=== PATIENT | female | born 1950 | race Caucasian/White ===

== ENCOUNTER 2024-08-14 11:12 | Outpatient (CLI) | payer MEDICARE, SELFPAY ==
[2024-08-14 11:35] LABS: Basophils Absolute Auto 0.04 K/mm3 (0.00-0.10); Basophils Percent Auto 0.3 % (0.0-1.0); Eosinophils Absolute Auto 0.74 K/mm3 (0.02-0.50); Eosinophils Percent Auto 5.5 % (1.0-6.0); Hematocrit 34.4 % (35.0-42.0); Hemoglobin 10.1 g/dL (11.7-13.8); Immature Granulocyte Absolute 0.22 K/mm3 (0.00-0.00); Immature Granulocyte Percent A 1.6 % (0.0-0.0); Lymphocytes Absolute Auto 0.95 K/mm3 (1.10-4.50); Lymphocytes Percent Auto 7.1 % (18.0-42.0); Mean Corpuscular HGB Conc 29.4 g/dL (32-36); Mean Corpuscular Hemoglobin 27.9 pg (27.0-31.0); Mean Platelet Volume 10.5 fl (9.2-11.8); Monocytes Absolute Auto 0.54 K/mm3 (0.10-0.90); Neutrophils Percent Auto 81.5 % (50.0-70.0); Platelet Count Result 392 K/mm3 (150-420); Red Blood Count 3.62 M/mm3 (4.20-5.40); Red Cell Distribution Width 14.8 % (11.6-14.4); White Blood Count 13.4 K/mm3 (4.8-10.8)
--- OUTSIDE RECORDS SUMMARY | 2024-08-14 11:45 | XMS_ITS | Continuity of Care Document ---
Author Organization [facility] Address [address] [facility] [address] [place] [address] Phone Care Team Providers Care Oncology Coordinator Name Role Phone Krysta LANG FACS, Truman May le Allergies, Adverse Reactions, Alerts Substance Reaction Status Criticality CIPROFLOXACIN HCL Active No Informa tion ciprofloxacin Active No Information lisinopril Active No Information Ruqfxwa-INN-XlS Reductase Inhibitors Acti ve No Information Medications Medication Instructions Dosage Effective Dates (start - stop) Status Comments colchicine 0.6 mg capsule take 1 capsule by oral route every day 0.6 MG - Active Humulin 70/30 U-100 Insulin 100 unit/mL subcutaneous suspension inject by subcutaneous route as per insulin protocol 0.00 - Active Trulicity 0.75 mg/0.5 mL subcutaneous pen injector inject (0.75MG) by subcutaneous route every week 0.75 MG - Active lorazepam 2 mg tablet take 1 tablet by o ral route 3 times every day as needed 2 MG - Active ropinirole 1 mg tablet take 1 tablet by oral route 3 times every day 1 MG - Active venlafaxine ER 150 mg tablet,extended release 24 hr take 1 tablet by oral route every day in the morning at the same time each day with food 150 MG - Active furosemide 20 mg tablet take 1 tablet by oral route every day 20 MG - Active Procedures Procedure Date Corneal Topography No Charge Optomap Fundus Photos 024 No Charge Refraction Eye Exam, New Patient No Charge Optomap Fundus Photos 019 Corneal Topography Refraction Eye Exam, New Patient Advance Directives Directive Yes / No Effective Date File Name Other Directive No N/A N/A WARNING:The information contained in this section is historical and is provided for information only and does not constitute a legal document or any assurance that the information is still accurate. Please verify the information with the carrasco of the legal document before using it for clinical purposes. Encounters Encounter Description Practice Location Reason(s) For Visit Diagnoses Date Provider Providers Copied on Encounter [employer] [facility] [employer] [facility], [facility] [address], [place], [place], [address], tel:[phone] SEC [place] cornea eval (chief complaint) Presence of intraocular lensType 2 diabetes mellitus without complicationsA nterior basement membrane dystrophy (ABMD) of both eyesDrusen of right macula 4 [place] Truman. [facility] [address] [facility], [address], [place], [place], [address], . tel:[phone] Referring Provider: Nancy Bonilla OD, [address] [place], [place], [facility]. tel:[phone] [employer] [facility] [employer] [facility], [facility] [address], [place], [place], [address], tel:[phone] SEC [place] SUSSY Professional No Information 4 Rosendo OD Thuy. [facility] [address], [address], [place], [place], [address], . tel:[phone] [facility] [employer] [facility], [facility] [address], [place], [place], [address], tel:[phone] SEC [place] SUSSY Professional Complete Exam (chief complaint) ABMD (anterior basement membrane dystrophy)Pres ence of intraocular lensType 2 diabetes mellitus without complications 0-201 9 Krysta Truman. [address], [address], [place], [place], [address], . tel:[phone] Referring Provider: Nacny Bonilla OD, [address] [place], [address]. tel:[phone] Family History Family Member Type Diagnosis Age At Onset Father Problem (finding) glaucoma Payers Payer name Insurance type Covered green party ID Heidy lopez(s) [facility] Mdcr Adv CI [id number] Social History Type Description Quantity Date Captured Comments Alcohol Use Details No Caffeine Use Details No Tobacco Use Status Current non-smoker Smoking Status Never smoker Non-Smoking Tobacco Use Details : No Details Available : No Details Available Sex Female Chief Complaint And Reason For Visit From encounter dated '11/10/2023 13:00'. cornea eval (chief complaint). Description: The 73 year old patient presents for evaluation of cornea eval in the right eye and left eye. Patient was referring by OD to have ABMD re-evaluated. Patient states the vision in both eyes has gotten progressively worse over the last year, can no longer see print on the TV. Pt fell about 6 weeks ago and hit a flower pot temporal to the left eye, had a bump and pain in the corner of that eye. Pt is using iV[employer]ia PRN OU. Pt is IDDM II, and is followed by PCP and last A1C is unknown. Reason For Referral Reason For Referral No Information History Of Present Illness Encounter Date Complaint History Of Prese nt Illness cornea eval The 73 year old patient presents for evaluation of cornea eval in the right eye and left eye. Patient was referring by OD to have ABMD re-evaluated. Patient states the vision in both eyes has gotten progressively worse over the last year, can no longer see print on the TV. Pt fell about 6 weeks ago and hit a flower pot temporal to the left eye, had a bump and pain in the corner of that eye. Pt is using iV[employer]ia PRN OU. Pt is IDDM II, and is followed by PCP and last A1C is unknown. Complete Exam The 69 year old female presents for evaluation of Complete Exam in the right eye and left eye. Hx PCIOL OU s/p Yag PC OU, ABMD OU. Pt referred to us by Dr. Bonilla for ABMD OU. DM2, last A1c 8.3, last tested 2 weeks ago, BS 106 as of this morning, followed by Dr. Flynn. Pt reports trouble with night driving. Pt denies pain and discomfort, but dryness OU. Pt reports light sensitivity OU x 3-4 years. PT uses OTC ATs prn OU. Had amniotic membrane placed OD x [address] 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
[2024-08-14 11:48] LABS: Hemoglobin A1C 7.8 % (<5.7)
[2024-08-14 12:41] LABS: Alanine Aminotransferase 68 U/L (6-35); Albumin Level 3.1 g/dL (3.5-5.1); Alkaline Phosphatase 132 U/L (38-126); Anion Gap 9 mmol/L (4-12); Aspartate Amino Transferase 69 U/L (14-36); Bilirubin,Total 0.8 mg/dL (0.2-1.3); Blood Urea Nitrogen 38 mg/dL (7-17); Calcium 8.1 mg/dL (8.4-10.2); Carbon Dioxide 22 mmol/L (22-30); Chloride 101 mmol/L (98-107); Estimated Glomerular Filt Rate 14; Glucose 191 mg/dL (65-110); Osmolality Calculated 288 mOsm/kg (285-295); Potassium 5.7 mmol/L (3.4-5.0); Sodium 132 mmol/L (137-145); Total Protein 6.1 g/dL (6.3-8.2)
== END 2024-08-14 11:13 | disposition home or self-care (01) ==
PROVIDERS: PCP Family Medicine; Visit Provider Family Medicine
DX: N18.30 Chronic kidney disease, stage 3 unspecified (principal); E11.22 Type 2 diabetes mellitus with diabetic chronic kidney disease; E03.9 Hypothyroidism, unspecified; D64.9 Anemia, unspecified
CPT/HCPCS: 36415; 80053; 83036; 84443; 85025

== ENCOUNTER 2024-08-14 21:55 | Emergency (ER) | payer MEDICARE, SELFPAY ==
[2024-08-14] VITALS (11 sets, daily range): BP systolic 67–114; BP diastolic 26–99; PULSE 67–72; RESP 17–29; TEMP 36.9; O2SAT 80–99
--- NOTE | ~2024-08-14 | CT_ITS ---
History: Elevated creatinine and lethargy PROCEDURE: CT head without contrast. COMPARISON: None TECHNIQUE: Axial imaging of the head performed from the skull base to the vertex without IV contrast. Sagittal a nd coronal reformations obtained. Examination is limited by patient motion artifact DLP: 681 mGy-cm FINDINGS: The ventricles are normal in size, shape and position. There is no mass, mass effect or midline shift. Calcifications within the basal ganglia bilaterally. Bifrontal atrophy. There is no abnormal extra-axial fluid collection or intracranial hemorrhage. Visualized paranasal sinuses are clear. The mastoid air cells are well aerated. No acute displaced fractures within the overlying cranium. Impression: No acute intracranial hemorrhage or suspicious mass effect. Reviewed, dictated and finalized at location A. Impression: No acute intracranial hemorrhage or suspicious mass effect.
--- NOTE | ~2024-08-14 | XR_ITS ---
CHEST RADIOGRAPH CLINICAL HISTORY: volume overload . COMPARISON: None available TECHNIQUE: Single portable view of the chest. FINDINGS The cardiomediastinal silhouette is enlarged. Increased interstitial markings are identified bilaterally, findings suggesting mild pulmonary vascul ar congestion. The lungs are otherwise clear IMPRESSION: Mild pulmonary vascular congestion and cardiomegaly, without focal infiltrate or effusion. Reviewed, dictated and finalized at location A. IMPRESSION: Mild pulmonary vascular congestion and cardiomegaly, without focal infiltrate o r effusion.
--- NOTE | ~2024-08-14 | XR_ITS ---
Portable chest x-ray Comparison: 08/14/2024 Clinical History: Line placement Findings: Right IJ line in place, tip possibly just the right atrium. Lungs are clear, without focal consolidation or pleural effusion. No pneumothorax. Cardiomediastinal silhouette is stable. Bones a nd soft tissues are unremarkable. Impression: Right IJ line in place, as above. Clear lungs. Stable cardiomegaly. Reviewed, dictated and finalized at location M. Impression: Right IJ line in place, as above. Clear lungs. Stable cardiomegaly.
--- OUTSIDE RECORDS SUMMARY | 2024-08-14 21:58 | XMS_ITS | Continuity of Care Document ---
Author Organization [facility] Address [address] [facility] [address] [place] [address] Phone Care Team Providers Care Manufacturing Engineer Chief Name Role Phone Krysta LANG FACS, Truman May le Allergies, Adverse Reactions, Alerts Substance Reaction Status Criticality CIPROFLOXACIN HCL Active No Informa tion ciprofloxacin Active No Information lisinopril Active No Information Thorbnz-UNI-CiB Reductase Inhibitors Acti ve No Information Medications [...] Diagnoses Date Provider Providers Copied on Encounter [employer] [facility], [facility] [address], [place], [place], [address], tel:[phone] SEC [place] cornea eval (chief complaint) Presence of intraocular lensType 2 diabetes mellitus without complicationsA nterior basement membrane dystrophy (ABMD) of both eyesDrusen of right macula 4 [place] Truman. [facility] [address] [facility], [address], [place], [place], [address], . tel:[phone] Referring Provider: Nancy Bonilla OD, [address] [place], [place], [facility]. tel:[phone] [employer], [facility] [address], [place], [place], [address], tel:[phone] SEC [place] SUSSY Professional No Information 4 Rosendo OD Thuy. [facility] [address], [address], [place], [place], [address], . tel:[phone] [employer] [facility], [facility] [address], [place], [place], [address], tel:[phone] SEC [place] SUSSY Professional Complete Exam (chief complaint) ABMD (anterior basement membrane dystrophy)Pres ence of intraocular lensType 2 diabetes mellitus without complications 0-201 9 Krysta Truman. [address], [address], [place], [place], [address], . tel:[phone] Referring Provider: Nancy Bonilla OD, [address] [place], [address]. tel:[phone] Family History Family Member Type Diagnosis Age At Onset Father Problem (finding) glaucoma Payers Payer name Insurance type Covered alliance party ID Heidy lopez(s) [facility] Mdcr Adv CI [id number] Social History Type Description Quantity Date Captured [...]
--- NOTE | 2024-08-14 22:01 | ED_ITS ---
HPI - General Adult General Chief complaint: Recheck/Abnormal Lab/Rx Stated complaint: abnormal labs Time Seen by Provider: 08/14/24 22:01 Source: patient and EMS Mode of arrival: ambulatory Limitations: no limitations History of Present Illness HPI narrative: 74-year-old female with a history of obesity, KOMAL, arthritis, sciatica hypothyroidism, dyslipidemia, diabetes mellitus, breast cancer status post lumpectomy and radiation many years ago, CHF, anemia, was recently admitted to [facility] for acute on chronic renal failure. After discharge the patient presented to her primary care physician who ordered blood work which revealed a BUN/creatinine of 38/3.17 with a potassium of 5.7. She is transferred from the halfway for abnormal labs. patient denies any chest pain or shortness of breath. No nausea, vomiting, abdominal pain or diarrhea. Patient has extensive flexural dermatitis involving her pannus and bilateral inguinal regions. Patient is drowsy but arousable. Patient is a current blood pressure of 98/76 with an oxygen saturation of 93% on room air. Related Data Allergies Allergy/AdvReac Type Severity Reaction Status Date / Time allopurinol Allergy Unknown Unknown Verified 08/14/24 22:34 atorvastatin Allergy Unknown Unknown Verified 08/14/24 22:34 ciprofloxacin Allergy Unknown Unknown Verified 08/14/24 22:34 lisinopril Allergy Unknown Unknown Verified 08/14/24 22:34 Penicillins Allergy Unknown Unknown Verified 08/14/24 22:34 pravastatin Allergy Unknown unknown Verified 08/14/24 22:34 sertraline Allergy Unknown Unknown Verified 08/14/24 22:34 Review of Systems 2 Review of Systems: All systems reviewed & are unremarkable except as noted in HPI and below Constitutional: Constitutional: Reports as per HPI and Reports no additional constitutional complaints Comments: Patient is drows Eyes: Eyes: Reports as per HPI and Reports no additional eye complaints ENT: Reports system reviewed and no additional complaints, except as documented and Reports as per HPI Cardiovascular: Cardiovascular: Reports as per HPI and Reports no additional cardiovascular complaints Respiratory: Respiratory: Reports as per HPI and Reports no additional respiratory complaints Gastrointestinal: Gastrointestinal: Reports as per HPI and Reports no additional gastrointestinal complaints Genitourinary: Genitourinary: Reports no additional female genitourinary complaints Musculoskeletal: Musculoskeletal: Reports no additional musculoskeletal complaints and Reports as per HPI Integumentary/Breasts: Skin/Breast: Reports system reviewed and no additional complaints, except as docu Comments: extensive erythematous rash below her pannus and bilateral inguinal region Neurologic: Reports system reviewed and no additional complaints, except as documented Comments: patient is drowsy. She is moving all her limbs Psychiatric: Psychiatric: Reports no additional psychiatric complaints and Reports as per HPI Endocrine: Endocrine: Reports no additional endocrine complaints and Reports as per HPI Hematologic/Lymphatic: Hematologic/Lymphatic: Reports no additional hematologic/lymphatic complaints and Reports as per HPI Allergic/Immunologic: Allergic/Immunologic: Reports no additional allergic/immunologic complaints and Reports as per HPI [facility] Past Medical History Medical History (Updated 08/15/24 @ 01:40 by Danial Brown MD) Breast cancer Flexural seborrheic dermatitis Hypertension CHF (congestive heart failure) CKD (chronic kidney disease) Dyslipidemia Hypothyroidism Hyperglycemia due to type 2 diabetes mellitus Social History Social History (Updated 08/14/24 @ 22:20 by Danial Brown MD) Social History: halfway resident Exam 2 Narrative: blood pressure is 98/76 with a pulse of 71. Afebrile oxygen saturation of 93% on room Const: General: ill appearing Nutritional Appearance: obese Limitations: altered mental status ( patient is drowsy but arouses) HENMT: Head: normal to inspection Ears: external ears normal F chen/Nose/Sinus: Normal external nose present Face and sinus: normal facial exam Mouth: Yes dry mucous membranes Throat: posterior oropharynx normal Eyes: Conjunctivae: conjunctivae normal Pupils: Equal, round and reactive pupils present EOM: EOMs intact bilaterally Direct Ophthalmoscopy: no photophobia Neck: Neck: normal visual inspection, no lymphadenopathy and no meningeal signs Chest: Chest palpation & inspection: normal inspection of the chest Resp: Effort & Inspection: normal respiratory effort Auscultation: clear to auscultation bilaterally Cardio: Rate: regular rate Rhythm: regular rhythm GI: GI Palp: Yes Soft to palpation Auscultation: normal bowel sounds O ther: parietal hernia no tenderness/ rigidity /rebound : General: Yes no CVA tenderness Back/Spine/Pelvis: Back: no CVA tenderness Skin: Other: edematous rash in the lower abdominal wall and bilateral Inguinal region and left breast Neuro: General: patient oriented x3, moves all extremities, no meningeal signs, no focal motor deficits and CN's II-XI intact bilaterally Speech: n ormal speech Other: patient is drowsy but Extrem: General: edema Psych: Mental Status: mental status grossly normal Course Course Emergency Course: altered mental status-- CT of the head did not show any acute findings low blood pressure--sepsis. patient has an elevated white cell count of 14.4 and a normal lactate. The patient has been cultured and start did on vanc and cefepime. hypoglycemia- patient is on long-acting insulin. The patient received 25 g of D50 and was started on D10 the blue at 50 cc an hour. acute on chronic failure/ Hyperkalemia-- patient appear to be dehydrated. Give a 500 mL of normal saline. The patient received Lokelma, IV bicarbonate and calcium gluconate for hyper kalemia hyperuricemia cardiomegaly-- rule out pericardial effusion Vital Signs Vital signs: Vital Signs Temperature 36.9 C 08/14/24 22:01 Pulse Rate 71 08/14/24 22:01 Respiratory Rate 17 08/14/24 22:01 Blood Pressure 68/44 L 08/14/24 22:01 Pulse Oximetry 93 08/14/24 22:01 Oxygen Delivery Room Air 08/14/24 22:01 Temperature 36.7 C 08/15/24 00:15 Pulse Rate 70 08/15/24 01:10 Respiratory Rate 25 H 08/15/24 00:15 Blood Pressure 90/53 L 08/15/24 01:10 Pulse Oximetry 97 08/15/24 00:15 Oxygen Delivery Room Air 08/15/24 00:15 Procedures Central Line Placement Right IJ: Central Line Date: 08/15/24 Central Line Time: 00:40 Discussed w/ the patient/family/POA,the placement of a central venous catheter, including its clinical necessity/indication & associated potential risks, benifits and alternatives.: Yes The patient/family/POA understand(s) and acknowledge(s) the need to proceed with central venous catheter insertion as an important element of the patient's clinical management.: Yes Performed Emergently - Given emergent patient condition, temporal constraints may have precluded informed consent.: Yes Time Out Performed: Yes Patient Placed on Monitor/Pulse Ox: Yes Max. Sterile Barrier Technique: Caps, large sterile sheet and hand hygiene Central Line Prep: 2% chlorhexidine scrub Local Anesthetic: lidocaine 1% Amount of anesthesia used (mL): 4 Central Line Lumen Inserted: triple Post Procedure: sutured in place and good blood return Post Procedure X-Ray: tip of catheter in good position ( the central line was pulled back by 3 cm.) Patient Tolerated Procedure: no complications Complications: none Medical Decision Making MDM Narrative Medical decision making narrative: hypotension acute on chronic renal failure with hyperkalemia altered mental status flexural dermatitis Differential Diagnosis Differential Diagnosis: septic shock, adrenal insufficiency, dehydration/hypovolemic shock Medical Records Medical records reviewed: Yes I reviewed the external patient's medical records. Vital Signs Vital Signs: Vital Signs Temperature 36.9 C 08/14/24 22:01 Pulse Rate 71 08/14/24 22:01 Respiratory Rate 17 08/14/24 22:01 Blood Pressure 68/44 L 08/14/24 22:01 Pulse Oximetry 93 08/14/24 22:01 Oxygen Delivery Room Air 08/14/24 22:01 Temperature 36.7 C 08/15/24 00:15 Pulse Rate 70 08/15/24 01:10 Respiratory Rate 25 H 08/15/24 00:15 Blood Pressure 90/53 L 08/15/24 01:10 Pulse Oximetry 97 08/15/24 00:15 Oxygen Delivery Room Air 08/15/24 00:15 Lab Data 08/14/24 22:55 08/14/24 22:55 Labs: Lab Results 08/14/24 08/14/24 08/15/24 Range/Units 22:55 23:26 00:03 WBC 14.4 H (4.8-10.8) K/mm3 RBC 3.46 L (4.20-5.40) M/mm3 Hgb 9.7 L (11.7-13.8) g/dL Hct 31.4 L (35.0-42.0) % MCV 90.8 (78.0-102.0) fL MCH 28.0 (27.0-31.0) pg MCHC 30.9 L (32-36) g/dL RDW 14.9 H (11.6-14.4) % Plt Count 420 (150-420) K/mm3 MPV 9.6 (9.2-11.8) fl Immature Gran % (Auto) 2.1 H (0.0-0.0) % Neut % (Auto) 76.6 H (50.0-70.0) % Lymph % (Auto) 12.4 L (18.0-42.0) % [place] % (Auto) 3.4 (2.0-11.0) % Eos % (Auto) 5.3 (1.0-6.0) % Baso % (Auto) 0.2 (0.0-1.0) % Lymph # (Auto) 1.78 (1.10-4.50) K/mm3 [place] # (Auto) 0.49 (0.10-0.90) K/mm3 Eos # (Auto) 0.77 H (0.02-0.50) K/mm3 Baso # (Auto) 0.03 (0.00-0.10) K/mm3 Abs Immat Gran (auto) 0.30 H (0.00-0.00) K/mm3 Absolute Neuts (auto) 11.03 H (1.70-7.20) K/mm3 Absolute Nucleated RBC 0.00 (0.00-0.00) K/mm3 Nucleated RBC % 0.0 (0-0.0) % Sodium 131 L (137-145) mmol/L Potassium 4.2 (3.4-5.0) mmol/L Chloride 100 (98-107) mmol/L Carbon Dioxide 24 (22-30) mmol/L Anion Gap 7 (4-12) mmol/L BUN 42 H (7-17) mg/dL Creatinine 4.32 H (0.7-1.0) mg/dL Estim Creat Clear Calc 12 ml/min Estimated GFR 10 L (59 - ) Glucose 51 L* (65-110) mg/dL POC Capillary Glucose 63 L 143 H (65-105) mg/dl Calculated Osmolality 279 L (285-295) mOsm/kg Lactic Acid 1.0 (0.4-2.0) mmol/L Uric Acid 7.6 H (2.5-7.5) mg/dL Calcium 8.0 L (8.4-10.2) mg/dL Magnesium 1.7 (1.6-2.3) mg/dL Total Bilirubin 0.6 (0.2-1.3) mg/dL AST 64 H (14-36) U/L ALT 68 H (6-35) U/L Alkaline Phosphatase 145 H (38-126) U/L Total Creatine Kinase 64 (30-135) U/L Troponin I < 0.012 (0.000-0.034) ng/mL NT-Pro-B Natriuret Pep 706 H (19.9-100) pg/mL Total Protein 6.2 L (6.3-8.2) g/dL Albumin 3.1 L (3.5-5.1) g/dL TSH 1.460 (0.465-4.680) uIU/mL Nasal MRSA (PCR) Detected A* (NOT DETECTE) Influenza A (RT-PCR) Negative (Negative) Influenza B (RT-PCR) Negative (Negative) RSV (RT-PCR) Negative (Negative) SARS-CoV-2 RNA (RT-PCR) Negative (Negative) ECG Data EKG #1: ECG completion date: 08/14/24 ECG completion time: 22:46 Interpretation: normal sinus rhythm. No ST elevation. Normal axis. 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 Critical Care Time Critical Care Time Critical Care Time: Yes Total Critical Care Time: 60 Discharge Plan Discharge Clinical Impression: Hypoglycemia Hypotension Qualifiers: Hypotension type: unspecified hypotension type Qualified Code(s): I95.9 - Hypotension, unspecified Acute on chronic kidney failure Qualifiers: Acute renal failure type: unspecified Chronic kidney disease stage: stage 4 (GFR 15-29) Qualified Code(s): N17.9 - Acute kidney failure, unspecified Patient Disposition: Still a Patient Condition: Stable Additional Instructions: transfer patient to [facility] in [facility]. Patient has been accepted by Dr. Hutton Patient Language: Bengali Follow-up/Referrals: Lavelle Manjarrez MD [Primary Care Provider] - Time of Disposition: 01:40
--- NOTE | 2024-08-14 22:23 | ECG_ITS ---
Test Date: 2024-08-14 22:46:46 Measurements Intervals [place] Rate: 73 P: 20 [place]: 169 QRS: -2 QRSD: 93 T: 5 QT: 401 QTc: 442 Interpretive Statements SINUS RHYTHM No previous ECG available for comparison Electronically Signed On 08-15-2024 14:00:27 CDT by Elan Dickey M.D.
--- OUTSIDE RECORDS SUMMARY | 2024-08-14 22:24 | XMS_ITS | Continuity of Care Document ---
Author Organization [facility] Address [address] [facility] [address] [place] [address] Phone Care Team Providers Care Ratoprinter Name Role Phone Krysta LANG FACS, Truman May le Allergies, Adverse Reactions, Alerts Substance Reaction Status Criticality CIPROFLOXACIN HCL Active No Informa tion ciprofloxacin Active No Information lisinopril Active No Information Ziehdfh-ZFT-DeU Reductase Inhibitors Acti ve No Information Medications [...] Diagnoses Date Provider Providers Copied on Encounter [facility], [facility] [address], [place], [place], [address], tel:[phone] SEC [place] cornea eval (chief complaint) Presence of intraocular lensType 2 diabetes mellitus without complicationsA nterior basement membrane dystrophy (ABMD) of both eyesDrusen of right macula 4 [place] Truman. [facility] [address] [facility], [address], [place], [place], [address], . tel:[phone] Referring Provider: Nancy Bonilla OD, [address] [place], [place], [facility]. tel:[phone] [facility], [facility] [address], [place], [place], [address], tel:[phone] SEC Chaz SUSSY Professional No Information 4 Rosendo OD Thuy. [facility] [address], [address], [place], [place], [address], . tel:[phone] [employer] [facility], [facility] [address], [place], [place], [address], tel:[phone] SEC [place] SUSSY Professional Complete Exam (chief complaint) ABMD (anterior basement membrane dystrophy)Pres ence of intraocular lensType 2 diabetes mellitus without complications 0-201 9 Krysta Truman. [address], [address], [place], [place], [address], . tel:[phone] Referring Provider: Nancy Bonilla OD, [address] [place], [address]. tel:[phone] Family History Family Member Type Diagnosis Age At Onset Father Problem (finding) glaucoma Payers Payer name Insurance type Covered constitution party ID Heidy lopez(s) [facility] Mdcr Adv CI [id number] Social History Type Description Quantity Date Captured [...]
[2024-08-14 22:58] LABS: Basophils Absolute Auto 0.03 K/mm3 (0.00-0.10); Basophils Percent Auto 0.2 % (0.0-1.0); Eosinophils Absolute Auto 0.77 K/mm3 (0.02-0.50); Eosinophils Percent Auto 5.3 % (1.0-6.0); Hematocrit 31.4 % (35.0-42.0); Hemoglobin 9.7 g/dL (11.7-13.8); Immature Granulocyte Percent A 2.1 % (0.0-0.0); Lymphocytes Absolute Auto 1.78 K/mm3 (1.10-4.50); Lymphocytes Percent Auto 12.4 % (18.0-42.0); Mean Corpuscular HGB Conc 30.9 g/dL (32-36); Mean Corpuscular Volume 90.8 fL (78.0-102.0); Mean Platelet Volume 9.6 fl (9.2-11.8); Monocytes Absolute Auto 0.49 K/mm3 (0.10-0.90); Monocytes Percent Auto 3.4 % (2.0-11.0); Neutrophils Absolute Auto 11.03 K/mm3 (1.70-7.20); Neutrophils Percent Auto 76.6 % (50.0-70.0); Platelet Count Result 420 K/mm3 (150-420); Red Blood Count 3.46 M/mm3 (4.20-5.40); Red Cell Distribution Width 14.9 % (11.6-14.4); White Blood Count 14.4 K/mm3 (4.8-10.8)
[2024-08-14] MEDS: SODIUM BICARBONATE 8.4% 50 MEQ/50 ML SYRINGE IV PUSH (23:09)
[2024-08-14 23:10] LABS: Alanine Aminotransferase 68 U/L (6-35); Albumin Level 3.1 g/dL (3.5-5.1); Alkaline Phosphatase 145 U/L (38-126); Anion Gap 7 mmol/L (4-12); Aspartate Amino Transferase 64 U/L (14-36); Bilirubin,Total 0.6 mg/dL (0.2-1.3); Blood Urea Nitrogen 42 mg/dL (7-17); Carbon Dioxide 24 mmol/L (22-30); Chloride 100 mmol/L (98-107); Creatine Kinase 64 U/L (30-135); Estimated CRCL calculation 12 ml/min; Estimated Glomerular Filt Rate 10; Osmolality Calculated 279 mOsm/kg (285-295); Potassium 4.2 mmol/L (3.4-5.0); Sodium 131 mmol/L (137-145); Total Protein 6.2 g/dL (6.3-8.2)
[2024-08-14] MEDS: CALCIUM GLUCONATE 1,000 MG/10 ML VIAL 1000 MG IV PUSH (23:13)
[2024-08-14 23:18] LABS: Magnesium 1.7 mg/dL (1.6-2.3); NT Pro B Type Natriuretic Pept 706 pg/mL (19.9-100); Uric Acid 7.6 mg/dL (2.5-7.5)
[2024-08-14 23:23] LABS: Glucose 51 mg/dL (65-110)
[2024-08-14 23:29] LABS: Glucose Point of Care 63 mg/dl (65-105)
[2024-08-14] MEDS: DEXTROSE 50% 25 GM/50 ML SYRINGE IV PUSH (23:29)
[2024-08-14 23:30] LABS: Troponin I < 0.012 ng/mL (0.000-0.034)
[2024-08-14 23:34] LABS: Influenza A QL RT-PCR Negative (Negative); Influenza B QL RT-PCR Negative (Negative); RSV RNA, RT-PCR Negative (Negative); SARS-CoV-2 RNA PCR Negative (Negative)
[2024-08-14] MEDS: DEXTROSE 10% 250 ML 50 ML IV CONT (23:36)
[2024-08-15] VITALS (28 sets, daily range): BP systolic 90–117; BP diastolic 47–84; PULSE 69–71; RESP 15–28; TEMP 36.7–36.9; O2SAT 93–100
[2024-08-15 00:04] LABS: MRSA (PCR) DETECTED (NOT DETECTE)
[2024-08-15 00:07] LABS: Glucose Point of Care 143 mg/dl (65-105)
--- NOTE | 2024-08-15 00:13 | PC.NURSE ---
ERP at patient bedside for insertion of central line. RN phoned patient granddaughter Gale [phone] to provide update on patient and plan to transfer.
[2024-08-15] MEDS: SODIUM CHLORIDE 0.9% IV 500 ML 999 ML IV CONT (00:30)
[2024-08-15] MEDS: SODIUM ZIRCONIUM CYCLOSILICATE 5 GM POWD.PACK PO (01:00)
[2024-08-15] MEDS: CEFEPIME 2 GM/NS 50 ML 2 GM/50 ML BAG IVPB (01:00)
[2024-08-15] MEDS: PHENYLEPHRINE HCL INJ 50 MG in SODIUM CHLORIDE 0.9% IV 245 ML 12 ML IV CONT (01:10)
[2024-08-15 02:15] LABS: Glucose Point of Care 109 mg/dl (65-105)
--- NOTE | 2024-08-15 02:37 | PC.NURSE ---
patient granddaughter Gale phoned per this RN at this time. update provided including diagnosis, treatments provided, current VS and transfer hospital and room number.
[2024-08-15] MEDS: VANCOMYCIN 1,500 MG/NS 500 ML 1,500 MG/500 ML BAG 250 MG IVPB (02:55)
--- NOTE | 2024-08-17 14:32 | PC.NURSE ---
PRELIMINARY BLOOD CULTURE REPORT; NO GROWTH TO DATE.
--- NOTE | 2024-08-22 13:34 | PC.NURSE ---
final blood cultures x2 reviewed. no growth after 5 days. no change in plan of care
== END 2024-08-15 03:27 | disposition short-term general hospital (02) ==
PROVIDERS: Emergency Provider Internal Medicine Critical Care Medicine; PCP Family Medicine
DX: E11.649 Type 2 diabetes mellitus with hypoglycemia without coma (principal); I95.9 Hypotension, unspecified; N17.9 Acute kidney failure, unspecified; R79.89 Other specified abnormal findings of blood chemistry; L21.9 Seborrheic dermatitis, unspecified; I13.0 Hypertensive heart and chronic kidney disease with heart failure and stage 1 through stage 4 chronic kidney disease, or unspecified chronic kidney disease; I50.9 Heart failure, unspecified; E11.22 Type 2 diabetes mellitus with diabetic chronic kidney disease; D63.1 Anemia in chronic kidney disease; N18.9 Chronic kidney disease, unspecified; E03.9 Hypothyroidism, unspecified; E78.5 Hyperlipidemia, unspecified; F41.1 Generalized anxiety disorder; Z85.3 Personal history of malignant neoplasm of breast; Z20.822 Contact with and (suspected) exposure to COVID-19
CPT/HCPCS: 36415; 70450; 71045; 80053; 82550; 82948; 83605; 83735; 83880; 84443; 84484; 84550; 85025; 87040; 87637; 87641; 93005; 96365; 96366; 96368; 96375; 99291; A9270; J0612; J0692; J2371; J3370; J7040; J7050